=== PATIENT | female | born 1985 | race Caucasian/White ===

== ENCOUNTER → 2020-09-17 | Emergency (ER) | payer MEDICAID ==
[~2020-09-17] VITALS: Ht 167.6 cm; Wt 81.8 kg
[~2020-09-17] MED LIST: ACETAMINOPHEN 325 MG TABLET PO ONE
[2020-09-17 18:47] VITALS: BP 146/80
== END | disposition home or self-care (01) ==
LOC: EMS 16:47
DX: O9A.211 Injury, poisoning and certain other consequences of external causes complicating pregnancy, first trimester (principal); Z3A.08 8 weeks gestation of pregnancy
CPT/HCPCS: 99283